=== PATIENT | male | born 1945 | race Two or more races ===

== ENCOUNTER 2019-10-11 06:15 | Day surgery (SDC) | payer MEDICARE, MEDICAID ==
[2019-10-08 09:10] LABS: BASOPHILS % (AUTO) 1.3 % (0.0-2.0); EOSINOPHILS % (AUTO) 1.2 % (0.0-3.0); LYMPHOCYTES % (AUTO) 15.1 % (20.0-45.0); MEAN CORPUSCULAR VOLUME 98 FL (80-99); MONOCYTES % (AUTO) 8.3 % (1.0-10.0); NEUTROPHILS % (AUTO) 74.1 % (45.0-75.0); PLATELET COUNT 204 K/UL (150-450); RED CELL DISTRIBUTION WIDTH 11.1 % (11.6-14.8); WHITE BLOOD COUNT 7.6 K/UL (4.8-10.8)
[2019-10-08 09:27] LABS: ANION GAP 6 mmol/L (5-15); BLOOD UREA NITROGEN 14 mg/dL (7-18); CALCIUM 9.1 MG/DL (8.5-10.1); CARBON DIOXIDE 32 MMOL/L (21-32); CHLORIDE 102 MMOL/L (98-107); CREATININE 1.3 MG/DL (0.55-1.30); POTASSIUM 3.9 MMOL/L (3.5-5.1); SODIUM 140 MMOL/L (136-145)
--- NOTE | 2019-10-08 10:39 | Diagnostic Imaging Report ---
Indication: Cough Technique: One view of the chest Comparison: none Findings: Lungs and pleural spaces are clear. The heart is borderline enlarged. There is an old healed right clavicular fracture deformity Impression: No acute process
--- NOTE | 2019-10-08 10:54 | Opthalmology H&P ---
Ophthalmology H&P H&P Chief Complaint: decreased vision in right eye HPI Vision Affects Ability to: read, focus/use eyes together, manage personal affairs HPI Narrative blurry vision Exam Visual Acuity: OD 20/160 OS 20/40 Tension: OD 25 OS 21 Eye Exam: normal OU: external exam, palpebral fissure-width, marginal reflex distance, levator function, corneas, anterior chambers, fundus exam; findings: lens - NS Cat OU Assessment/Plan Treatment Plan: cataract extraction w/ lens implant Goals of Treatment: improvement of vision, enhance quality of life Attestation Attestation The risks and benefits of the surgery as well as alternative procedures were explained to the patient in detail. Luisito Edmond MD Oct 08, 2019 10:54
--- NOTE | 2019-10-08 10:55 | Pre-Procedure Note/Attestation ---
Pre-Procedure Note/Attestation Complete Prior to Procedure Planned Procedure: right Procedure Narrative: Cataract extraction with intraocular lens implant right eye Indications for Procedure Pre-Operative Diagnosis: Nuclear sclerotic cataract right eye Attestation I attest that I discussed the nature of the procedure; its benefits; risks and complications; and alternatives (and the risks and benefits of such alternatives ), prior to the procedure, with the patient (or the patient's legal entry level sales representative). I attest that, if there was a reasonable possibility of needing a blood transfusion, the patient (or the patient's legal entry level sales representative) was given the [facility] standardized written summary, pursuant to the Latrell Vita Blood Safety Act ([place] Health and Safety Code # 1645, as amended). I attest that I re-evaluated the patient just prior to the surgery and that there has been no change in the patient's H&P, except as documented below: Luisito Edmond MD Oct 08, 2019 10:55
--- NOTE | 2019-10-08 14:00 | Pre-op HX & Phy Repo 2 SIG ---
DATE OF ADMISSION: 10/11/2019 PRESURGICAL INTERNAL MEDICINE HISTORY AND PHYSICAL DATE OF EVALUATION: 10/08/2019. REASON FOR EVALUATION: I was asked by Dr. Luisito Edmond to see this 74-year-old male, who is going for elective surgery of the right eye on 10/11/2019. The patient was examined, chart was reviewed at [facility] in the outpatient procedure department. The patient was examined and chart was reviewed. 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 No history of chest pain, palpitation, or heart attack. No anemia. No GI bleeding. No hepatitis. No history of renal failure. The patient has history faint improvement and uses a hearing aid. PAST SURGICAL HISTORY: None. FAMILY HISTORY: Mother with hypertension and diabetes. Father, unknown. ALLERGIES: Not known. PRESENT MEDICATIONS: Include atorvastatin, amlodipine 10 mg, losartan 100 mg, glipizide, metformin 1000 mg, and baby aspirin. HABITS: The patient denies history of smoking or alcohol habits. No street drugs. PHYSICAL EXAMINATION: GENERAL: The patient is alert, Albanian-speaking male, weight more than 220 pounds and 5 feet 5 inches tall. The patient is using a cane to ambulate due to age and disease knee. VITAL SIGNS: Blood pressure 200/98, temperature 98.3, pulse 89, respirations 16, O2 saturation 97% on room air. SKIN: Dry, warm, clear, normal color. LYMPHATICS: Lymph nodes not enlarged. HEENT: Head is normocephalic and atraumatic. Ears, clear. Eyes, full description per Dr. Luisito Edmond. Mouth, clear and moist. NECK: There is a small approximately 1 cm in diameter cyst. No jugular vein distention. No thyroid gland enlargement. CHEST: No deformity or asymmetry. LUNGS: No rales or rhonchi. HEART: Regular. No ectopy. No murmur. No S3, S4. ABDOMEN: Soft, obese. Liver and spleen not enlarged. No rebound ____ diaphragm. EXTREMITIES: Degenerative joint disease of knee and shoulder. No varicose vein. No edema. GENITOURINARY: BPH. No CVA tenderness. NEUROLOGIC: No asymmetry. No tremor. No nystagmus. LABORATORY AND DIAGNOSTIC DATA: ECG pending. Lab work pending. The patient to be NPO after midnight Friday. IMPRESSION: 1. Nuclear sclerotic cataract, right eye. 2. Uncontrolled hypertension. 3. Diabetes mellitus type 2. 4. Obesity. 5. Benign prostatic hypertrophy. 6. Sleep apnea. 7. Degenerative joint disease, knee and shoulder. PLAN: Cataract extraction, right eye with intraocular lens implant by Dr. Luisito Edmond. CONCLUSION: The patient has type 2 diabetes and hypertension, poorly controlled. The patient is obese and has sleep apnea. RECOMMENDATION: For weight control and control blood pressure with multiple medications. The patient's condition will be optimized for surgery. Thank you very much, Dr. Edmond, for privilege to participate in presurgical care in this interesting patient. Kristie Garcia M.D. DR: DEYANIRA JOB#: [id number] CC:
[2019-10-11] VITALS (8 sets, daily range): BP systolic 137–156; BP diastolic 75–94
[~2019-10-11] VITALS: Ht 165.1 cm; Wt 98.4 kg
[~2019-10-11 06:15] MED LIST: AMLODIPINE BESY10 MG ORAL; ASPIRIN81 MG ORAL; ATORVASTATIN CA20 MG ORAL; CHLORTHALIDONE50 MG ORAL; GLIPIZIDE5 MG ORAL; LOSARTAN POTASS50 MG ORAL; METFORMIN HCL1000 M1 ORAL
[2019-10-11] MEDS ORDERED: Maxitrol Opth Oint 3.5gm ONE (06:30)
[2019-10-11] MEDS ORDERED: prednisoLONE acetate 1% Opth Susp 1ml ONE (06:30)
[2019-10-11] MEDS ORDERED: Pilocarpine 1% Opth 15ml Soln ONE (06:30)
[2019-10-11] MEDS ORDERED: Akten 3.5% 1ml Btl RIGHT EYE ONE (07:00)
[2019-10-11] MEDS ORDERED: Proparacaine 0.5% Opth Soln 15ml RIGHT EYE ONE (07:00)
[2019-10-11] MEDS ORDERED: Tetracaine 0.5% Opth 4ml Soln RIGHT EYE ONE (07:00)
[2019-10-11] MEDS: Cyclopentolate 1% Opth Sol 2ml RIGHT EYE SCH ×3 (09:32→09:50)
[2019-10-11] MEDS: Phenylephrine 10% Opth Soln 5ml RIGHT EYE SCH ×3 (09:32→09:50)
[2019-10-11] MEDS: Diclofenac Sod 0.1% Op Soln RIGHT EYE SCH ×3 (09:32→09:51)
[2019-10-11] MEDS: Tropicamide 1% Opth 15ml Soln RIGHT EYE SCH ×3 (09:32→09:50)
[2019-10-11] MEDS: Tobramycin Op Soln 0.3% 5ml RIGHT EYE SCH ×3 (09:32→09:51)
[2019-10-11] MEDS ORDERED: BSS 500ml btl ONE (10:53)
[2019-10-11] MEDS ORDERED: EPINEPHrine 1mg/1ml Amp ONE (10:53)
[2019-10-11] MEDS ORDERED: Povidone-Iodine 5% opth solution ONE (10:54)
[2019-10-11] MEDS ORDERED: Sodium Hyaluronate 10 mg/ml 0.85ml ONE (10:54)
[2019-10-11] MEDS ORDERED: BSS 15ml BTL ONE (10:54)
[2019-10-11] MEDS ORDERED: Midazolam 2mg/2ml Inj ONE (10:55)
[2019-10-11] MEDS ORDERED: fentaNYL 100 mcg/2 mL IV ONE (10:55)
[2019-10-11] MEDS ORDERED: LR 1000ml ONE (11:00)
[2019-10-11] MEDS ORDERED: NS Irrig 1000ml ONE (11:00)
[2019-10-11] MEDS ORDERED: Sterile Water Irrig 1000ml IRRIG ONE (11:00)
--- NOTE | 2019-10-11 11:18 | Anethesia Preoperative Eval ---
Anesthesia Pre-op PMH/ROS General Date of Evaluation: Oct 11, 2019 Time of Evaluation: 11:16 Anesthesiologist: usha ASA Score: ASA 3 Mallampati Score Class I : Soft palate, uvula, fauces, pillars visible Class II: Soft palate, uvula, fauces visible Class III: Soft palate, base of uvula visible Class IV: Only hard plate visible Mallampati Classification: Class III Surgeon: darline Diagnosis: cataract Surgical Procedure: cataract extraction with IOL Anesthesia History: none Allergies: Coded Allergies: No Known Allergies (Unverified , 10/08/19) Medications: see eMAR Patient NPO?: Yes NPO Date: Oct 11, 2019 NPO Time: 04:00 Past Medical History Cardiovascular: Reports: HTN, CAD Gastrointestinal/Genitourinary: Reports: GERD Endocrine: Reports: DM HEENT: Reports: cataract (R) Other: obesity PSxH Narrative: unknown Anesthesia Pre-op Phys. Exam Physician Exam Last Vital Signs Date Time Temp Pulse Resp B/P (MAP) Pulse Ox O2 Delivery O2 Flow Rate FiO2 10/11/19 09:47 Room Air 10/11/19 08:13 97.9 87 14 150/80 96 Constitutional: NAD Neurologic: CN 2-12 intact Cardiovascular: RRR Respiratory: CTA Gastrointestinal: S/NT/ND Airway Exam Mallampati Classification 3 Mallampati Score: Class III MO: limited ROM: limited Dentures: no upper, no lower Anesthesia Pre-op A/P Studies Pre-op Studies: EKG - SR Risk Assessment & Plan Assessment: denies cp/sob Plan: mac Status Change Before Surgery: No Pre-Antibiotics Drug: declined Martha Nur CRNA Oct 11, 2019 11:18
--- NOTE | 2019-10-11 12:34 | Immediate Post-Op Evaluation ---
Immediate Post-Op Evalulation Immediate Post-Op Evalulation Procedure: cataract extraction with IOL right Date of Evaluation: Oct 11, 2019 Time of Evaluation: 11:45 IV Fluids: 300 Blood Pressure Systolic: 136 Blood Pressure Diastolic: 80 Pulse Rate: 60 Respiratory Rate: 14 O2 Sat by Pulse Oximetry: 98 Temperature (Fahrenheit): 97.3 Nausea: No Vomiting: No Patient Status: awake, reacts, patent Hydration Status: adequate Drug: none MicheletriMartha ribera CRNA Oct 11, 2019 12:34
--- NOTE | 2019-10-11 12:36 | 48 Hour Post Anesthesia Eval ---
Post Anesthesia Evaluation Procedure: cataract extraction with IOL right Date of Evaluation: Oct 11, 2019 Time of Evaluation: 12:35 Blood Pressure Systolic: 136 0: 80 Pulse Rate: 60 Respiratory Rate: 14 Temperature (Fahrenheit): 97.3 Airway: patent Nausea: No Vomiting: No Hydration Status: adequate Cardiopulmonary Status: stable Mental Status/LOC: patient returned to baseline Follow-up Care/Observations: na Post-Anesthesia Complications: none Follow-up care needed: N/A Martha Nur CRNA Oct 11, 2019 12:36
[2019-10-11] MEDS ORDERED: acetaZOLAMIDE 500mg Inj ONE (12:40)
--- NOTE | 2019-10-11 15:23 | Brief Operative Note ---
Immediate Post Operative Note Operative Note Chief Complaint: Blurry vision Pre-op Diagnosis: Nuclear sclerotic cataract right eye Procedure: Cataract extraction with IOL implant right eye Post-op Diagnosis: Pseudophakia OD Findings: consistent w/pre-op dx studies Surgeon: Luisito Edmond MD Anesthesiologist: Martha Nur CRNA Anesthesia: MAC Specimen: none Complications: none Condition: stable Fluids: LR Estimated Blood Loss: none Drains: none Implant(s) used?: Yes - IOL-OD Luisito Edmond MD Oct 11, 2019 15:23
--- NOTE | 2019-10-11 15:27 | Operative Note - PDOC ---
Operative Note Operative Note Date of Operation/Procedure: Oct 11, 2019 Chief Complaint: Blurry vision Pre-op Diagnosis: Nuclear sclerotic cataract right eye Procedure: Cataract extraction with IOL implant right eye Post-op Diagnosis: Pseudophakia OD Operative Findings: consistent w/pre-op dx studies Surgeon: Luisito Edmond MD Anesthesiologist: Martha Nur CRNA Anesthesia: MAC Specimen: none Complications: none Condition: stable Fluids: LR Estimated Blood Loss: none Drains: none Implant(s) used?: Yes - IOL-OD Indications for Procedure Nuclear sclerotic cataract right eye Description of Procedure This patient has been complaining visually significant cataract in the right eye with the best corrected visual acuity of 20/160 under moderate glare conditions worse. The patient complains of difficulties with glare in performing activities of daily living and wants to manage personal affairs with comfort and accuracy and see well enough to move with safety at home and outdoors. The risks, benefits and alternatives of the procedure were discussed with the patient in the office prior to scheduling surgery. All questions from the patient were answered after the surgical procedure was explained in detail. The risks of the procedure as explained to the patient include, but are not limited to, pain, infection, bleeding, loss of vision, retinal detachment, need for further surgery, loss of lens nucleus, double vision, etc. Alternative procedures were discussed which include, to do nothing or seek a second opinion. Informed consent for this procedure was obtained from the patient. The patient was referred to a primary care physician for a cardiopulmonary clearance prior to surgery, after proper evaluation was done patient was properly scheduled for outpatient surgery. The patient was brought to the operating room where the anesthesiologist established I.V. lines and cardiac monitoring leads. Mild intravenous sedation was administered. The patient was then prepared with a 5% solution of povidone -iodine to the conjunctival fornix and lashes, and a 5% solution of povidone- iodine to the lids and periorbital skin. The patient was then draped in the usual sterile fashion. A lid speculum was then placed in the operative eye. A keratome blade was then used to create a biplanar incision into the anterior chamber. Viscoelastics was then instilled into the anterior chamber. A 3-mm single pass clear corneal incision was made just anterior to the vascular arcade of the temporal limbus using a keratome. Anterior capsulorrhexis was created. The nucleus was hydrodissected and hydrodelineated, and was freely movable in the capsular bag. The nucleus was then phacoemulsified. Following the deep groove formation, the lens was split bimanually and epicortex removed under vacuum burst-mode phacoemulsification. Peripheral cortex was removed with the irrigation and aspiration handpiece. The capsular bag was expanded with viscoelastic. The intraocular lens was then inspected for right power and size and thought to be satisfactory. The implant was inspected under the microscope and found to be free of defects. The implant was inserted into the cartridge system under viscoelastic and placed in the capsular bag. The trailing haptic was positioned with the cartridge system. Viscoelastics was removed from the anterior chamber using the irrigation and aspiration unit. The corneal wound was then tested for leaks and none were found. The lid speculum were then removed. Sponge and needle counts were correct. An eye patch and shield were placed over the operative eye. The patient was taken to the recovery room in stable condition. There were no complications. The patient tolerated the procedure well. The patient was then transferred to the ambulatory surgery unit in stable and satisfactory condition , was given detailed written instructions and asked to follow up in the office the next day. Luisito Edmond MD Oct 11, 2019 15:27
== END 2019-10-11 13:00 | disposition home or self-care (01) ==
LOC: SUR 06:15
DX: H25.11 Age-related nuclear cataract, right eye (principal); I10 Essential (primary) hypertension; G47.00 Insomnia, unspecified; E11.9 Type 2 diabetes mellitus without complications; Z79.82 Long term (current) use of aspirin; Z79.84 Long term (current) use of oral hypoglycemic drugs; Z79.899 Other long term (current) drug therapy; E66.9 Obesity, unspecified; N40.0 Benign prostatic hyperplasia without lower urinary tract symptoms; G47.30 Sleep apnea, unspecified; M17.10 Unilateral primary osteoarthritis, unspecified knee; M19.019 Primary osteoarthritis, unspecified shoulder; Z68.36 Body mass index [BMI] 36.0-36.9, adult; I11.9 Hypertensive heart disease without heart failure; I25.10 Atherosclerotic heart disease of native coronary artery without angina pectoris; K21.9 Gastro-esophageal reflux disease without esophagitis
CPT/HCPCS: 36415; 66984; 71045; 80048; 82962; 85025; 85610; 85730; 93005; 94003; J0171; J1100; J1120; J2250; J3010; J3370; J7120; V2632; 94150